=== PATIENT | male | born 1975 | race African-American/Black ===

== ENCOUNTER 2022-09-02 11:19 | Day surgery (SDC) | payer OTHER ==
[2022-08-23 10:05] VITALS: BMI 24.4
[2022-09-02] MEDS ORDERED: BUPIVACAINE HCL/PF 0.5% (5 MG/ML) 30 ML VIAL IJ ONE (13:30)
[2022-09-02] MEDS ORDERED: DEXAMETHASONE SOD PHOSPHATE/PF 10 MG/ML SDV ONE (13:30)
[2022-09-02] MEDS ORDERED: MIDAZOLAM HCL 2 MG/2 ML SINGLE DOSE VIAL ONE ×4 (13:31→15:45)
[2022-09-02] MEDS ORDERED: BUPIVACAINE HCL/PF 0.25% (2.5MG/ML) 10 ML VIAL ONE (14:17)
[2022-09-02] MEDS ORDERED: ceFAZolin SODIUM 1 GM VIAL ONE (15:15)
[2022-09-02] MEDS ORDERED: ONDANSETRON 4 MG/2 ML VIAL ONE (15:15)
[2022-09-02] MEDS ORDERED: PROPOFOL 20 ML ONE ×3 (15:17→16:40)
[2022-09-02] MEDS ORDERED: ONDANSETRON 4 MG/2 ML VIAL IVPUSH PRN (17:21)
[2022-09-02] MEDS ORDERED: oxyCODONE HCL 5 MG TABLET PO PRN ×2 (17:21)
[2022-09-02] MEDS ORDERED: LACTATED RINGERS SOLUTION 1,000 ML IV SCH (17:30)
[2022-09-02 18:11] VITALS: RESP 18
[2022-09-02 18:26] VITALS: TEMP 97.5
[2022-09-02 19:09] VITALS: BP 116/65; PULSE 64
== END 2022-09-02 19:09 | disposition home or self-care (01) ==
LOC: FASU 11:19
PROVIDERS: ATTEND Orthopaedic Surgery
PROC: 0RNJ4ZZ Release Right Shoulder Joint, Percutaneous Endoscopic Approach (ICD-10-PCS; principal; 2022-09-02 14:17)
PROC: 0LS30ZZ Reposition Right Upper Arm Tendon, Open Approach (ICD-10-PCS; 2022-09-02 14:17)
DX: S46.011D Strain of muscle(s) and tendon(s) of the rotator cuff of right shoulder, subsequent encounter (principal); M75.21 Bicipital tendinitis, right shoulder; S43.431D Superior glenoid labrum lesion of right shoulder, subsequent encounter; M65.811 Other synovitis and tenosynovitis, right shoulder; M75.51 Bursitis of right shoulder; M75.01 Adhesive capsulitis of right shoulder; X58.XXXD Exposure to other specified factors, subsequent encounter
CPT/HCPCS: 88304-TC; 94760; C1713